=== PATIENT | male | born 1995 | race Caucasian/White ===

== ENCOUNTER 2017-02-27 18:16 | Emergency (ER) | payer OTHER ==
[~2017-02-27] VITALS: Ht 177.8 cm; Wt 94.5 kg
[2017-02-27] MEDS ORDERED: HALOPERIDOL 5 MG TAB PO STA (18:58)
[2017-02-27] MEDS ORDERED: LORazepam 2 MG TAB PO STA (18:58)
[2017-02-27] MEDS ORDERED: diphenhydrAMINE 50 MG CAP PO ONE (19:00)
[2017-02-27 19:15] LABS: MEAN CORPUSCULAR HGB CONC 34.7 g/dl (32.0-36.5); MEAN CORPUSCULAR VOLUME 89.3 fl (80.0-96.0); RED CELL DISTRIBUTION WIDTH 12.1 % (11.5-14.5)
[2017-02-27 19:46] LABS: ALBUMIN 4.2 GM/DL (3.2-5.2); ALBUMIN/GLOBULIN RATIO 1.17 (1.00-1.93); ALKALINE PHOSPHATASE 94 U/L (45-117); ALT/SGPT 72 U/L (12-78); ANION GAP 8 MEQ/L (8-16); AST/SGOT 54 U/L (15-37); BILIRUBIN,DIRECT 0.1 MG/DL (0.0-0.2); BILIRUBIN,TOTAL 0.4 MG/DL (0.2-1.0); BLOOD UREA NITROGEN 7 MG/DL (7-18); CARBON DIOXIDE LEVEL 28 MEQ/L (21-32); CHLORIDE LEVEL 105 MEQ/L (98-107); CREATININE FOR GFR 1.16 MG/DL (0.70-1.30); GLOMERULAR FILTRATION RATE > 60.0 (>60); GLUCOSE, FASTING 96 MG/DL (70-105); POTASSIUM SERUM 4.6 MEQ/L (3.5-5.1); SODIUM LEVEL 141 MEQ/L (136-145); TOTAL PROTEIN 7.8 GM/DL (6.4-8.2)
[2017-02-27 20:15] LABS: METHADONE URINE NEGATIVE (NEGATIVE)
[2017-02-28 05:03] VITALS: BP 146/84
== END 2017-02-28 05:05 | disposition home or self-care (01) ==
LOC: M ED 18:16
DX: F10.220 Alcohol dependence with intoxication, uncomplicated (principal)
CPT/HCPCS: 36415; 80048; 80076; 80307; 84443; 85027; 99285; G0480